=== PATIENT | male | born 1995 | race Caucasian/White ===

== ENCOUNTER 2021-05-15 01:38 | Emergency (ER) | payer SELFPAY ==
[~2021-05-15] VITALS: Ht 175.3 cm; Wt 85.0 kg
[2021-05-15] MEDS ORDERED: TETANUS, DIPHTHERIA, PERTUSSIS VAC/PF 0.5ML (>10YR OLD) IM ONE (02:30)
[2021-05-15] MEDS ORDERED: ACETAMINOPHEN 325MG TABLET PO ONE (02:30)
[2021-05-15] MEDS ORDERED: LIDOCAINE HCL/EPINEPHRINE 1%-EPI 1:100,000 20 ML VIAL INFIL ONE (02:30)
[2021-05-15] MEDS ORDERED: BACITRACIN ZINC OINT UDPKT TOP ONE (02:30)
[2021-05-15 03:54] VITALS: BP 145/86
[2021-05-15] MEDS ORDERED: BO1 TP (04:05)
== END 2021-05-15 04:33 | disposition home or self-care (01) ==
LOC: ER 01:38
DX: S61.511A Laceration without foreign body of right wrist, initial encounter (principal); W01.110A Fall on same level from slipping, tripping and stumbling with subsequent striking against sharp glass, initial encounter; Y93.89 Activity, other specified; Y92.018 Other place in single-family (private) house as the place of occurrence of the external cause
CPT/HCPCS: 12004; 73110; 90471; 90715; 99283; J3490; Z7610